=== PATIENT | male | born 1950 | race Caucasian/White ===

== ENCOUNTER 2016-08-06 14:25 | Emergency (ER) | payer MEDICARE, OTHER ==
[2016-08-06 16:25] LABS: HEMOGLOBIN 11.5 gm/dl (14.0-17.5); RED BLOOD COUNT 3.72 M/UL (4.20-5.50); WHITE BLOOD COUNT 13.2 K/UL (4.5-11.0)
== END 2016-08-06 19:59 | disposition short-term general hospital (02) ==
LOC: ER1 14:25
PROVIDERS: Family Medicine
DX: N13.2 Hydronephrosis with renal and ureteral calculous obstruction (principal); N18.4 Chronic kidney disease, stage 4 (severe)
CPT/HCPCS: 36415; 80053; 85025; 99285

== ENCOUNTER → 2020-04-09 | Outpatient (CLI) | payer MEDICARE, OTHER ==
[~2020-04-09] MED LIST: ARICEPT10 MG PO; ASPIRIN CHEWABL81 MG PO; COGENTIN 2MG TAB2 MG PO; DESYREL 50 MG T50 MG PO; DITROPAN XL5 MG PO; DOCUSATE CALCI240 MG PO; KLONOPIN1 MG PO; LEVSIN TAB 00.125 MG SL; MIRALAX17 GM PO; MYCOSTATIN POWD15 GM TOP; NAMENDA10 MG PO; THIORIDAZINE PO; TRILEPTAL600 MG PO; VIT D PO; ZETIA 10 MG TAB10 MG PO
== END ==
LOC: KOH-I 04-02 13:00
DX: R20.0 Anesthesia of skin (principal); M51.26 Other intervertebral disc displacement, lumbar region
CPT/HCPCS: 72148

== ENCOUNTER → 2020-04-30 | Outpatient (CLI) | payer MEDICARE, OTHER | LOC: KOH-I 09:15 | DX: R51.9 Headache, unspecified (principal); R53.1 Weakness; M54.2 Cervicalgia; R90.82 White matter disease, unspecified | CPT/HCPCS: 70551 ==

== ENCOUNTER → 2020-05-10 | Outpatient (CLI) | payer MEDICARE, OTHER | LOC: KOH-I 05-03 08:15 | DX: R51.9 Headache, unspecified (principal); M54.2 Cervicalgia; M89.38 Hypertrophy of bone, other site; M48.02 Spinal stenosis, cervical region | CPT/HCPCS: 72141 ==

== ENCOUNTER → 2020-10-01 | Outpatient (CLI) | payer MEDICARE, OTHER | LOC: LAB 15:03 → LBRF 15:03 | DX: N39.0 Urinary tract infection, site not specified (principal); R50.9 Fever, unspecified | CPT/HCPCS: 81001; 87077; 87086; 87186 ==

== ENCOUNTER → 2021-07-17 | Outpatient (CLI) | payer MEDICARE, OTHER | LOC: CT 09:19 | DX: R19.00 Intra-abdominal and pelvic swelling, mass and lump, unspecified site (principal); N13.2 Hydronephrosis with renal and ureteral calculous obstruction ==